=== PATIENT | female | born 1990 | race Caucasian/White ===

== ENCOUNTER 2020-05-01 10:17 | Observation (INO) | payer OTHER, SELFPAY ==
[2020-05-01] VITALS (8 sets, daily range): BP systolic 112–130; BP diastolic 68–87; PULSE 94–116; RESP 16; TEMP 36.9–37.6; BMI 34.4
--- NOTE | 2020-05-01 11:00 | OBADM ---
This patient, Gurmeet Nagel, admitted to the OB room [address] Martin's office due to premature ROM. Patient/family oriented to hospital policies and general routines including ID bracelet, bed and alarms, visiting hours, pain management, procedures, bathroom and other care routines, personal items, smoking policy, room service/diet, and visiting hours. Patient/Family are encouraged to report perceived risks to care and to ask questions if they do not understand what they are told or what they should do.
[2020-05-01] MEDS: AMPICILLIN 2 GM/NS 100 ML 2 GM/100 ML BAG IVPB (11:21)
[2020-05-01] MEDS: BETAMETHASONE SOD PHOS/ACETATE 30 MG/5 ML VIAL 12 MG IM (11:36)
[2020-05-01 11:42] LABS: Basophils Percent Auto 0.3 % (0.2-1.2); Eosinophils Percent Auto 0.3 % (0-4.4); Hematocrit 35.7 % (37.0-47.0); Hemoglobin 12.2 g/dL (12.0-15.0); Immature Granulocyte Absolute 0.03 K/mm3 (0.00-0.031); Immature Granulocyte Percent A 0.3 % (0-0.5); Lymphocytes Absolute Auto 1.75 K/mm3 (0.9-3.2); Lymphocytes Percent Auto 17.6 % (18.3-44.2); Mean Corpuscular HGB Conc 34.2 g/dl (32-36); Mean Corpuscular Hemoglobin 29.5 pg (26-34); Mean Corpuscular Volume 86.4 fl (80-100); Mean Platelet Volume 10.6 fl (7.4-10.4); Monocytes Absolute Auto 0.5 K/mm3 (0.1-0.6); Monocytes Percent Auto 4.9 % (2.6-8.5); Neutrophils Absolute Auto 7.6 K/mm3 (1.3-6.7); Neutrophils Percent Auto 76.6 % (45.5-73.1); Platelet Count Result 306 k/mm3 (150-375); Red Blood Count 4.13 M/mm3 (4.2-5.4); Red Cell Distribution Width 12.4 % (11.5-14.5)
--- NOTE | 2020-05-01 12:01 | PM.IMHP ---
H&P: HPI History of Present Illness Chief complaint: Spontaneous Rupture of membranes Narrative: Gurmeet Nagel is a 29 year old at 24w3d who presented for OB visist in the office today. She had and anatomy US performed today which showed no amniotic fluid. Pt reports she did have an episode of leakage of fluid last week that she believed was urine. She states she has had minimal LOF since. She endorses good FM and denies any regular contractions. She did report a small amount of spotting today after voiding. She denies any fevers, chills, nausea, vomiting. Her has been uncomplicated to dates. Review of Systems Cardiovascular: Cardiovascular: Denies chest pain, Denies leg edema, Denies palpitations, Denies dyspnea and Denies dyspnea on exertion Respiratory: Respiratory: Denies cough, Denies dyspnea and Denies dyspnea on exertion Gastrointestinal: Gastrointestinal: Denies abdominal pain, Denies constipation, Denies diarrhea, Denies nausea and Denies vomiting Genitourinary: Genitourinary: Denies hematuria, Denies urinary frequency, Denies dysuria, Denies pelvic pain, Denies urinary incontinence and Denies vaginal discharge Neurologic: Reports system reviewed and no additional complaints, except as documented Psychiatric: Psychiatric: Reports no additional psychiatric complaints Endocrine: Endocrine: Denies palpitations Meds Home Medications and Allergies Home Medications Medication Instructions Recorded Confirmed Type PNV cmb#95-ferrous fumarate-FA 1 tablet PO DAILY 05/01/20 05/01/20 History [] aspirin [Aspirin Low Dose] 81 mg PO DAILY 05/01/20 05/01/20 History Allergies Allergy/AdvReac Type Severity Reaction Status Date / Time azithromycin AdvReac Nausea and Verified 05/01/20 11:04 Vomiting Vital Signs Vital Signs - 24 hr 05/01/20 10:46 05/01/20 11:10 05/01/20 11:15 Pulse Rate 116 H 99 104 H Blood Pressure 128/87 116/78 118/74 05/01/20 11:30 05/01/20 11:45 05/01/20 12:00 Pulse Rate 114 H 94 95 Blood Pressure 112/75 118/68 120/75 Exam Const: General: no acute distress Eyes: EOM: EOMs intact bilaterally Neck: Neck: supple Thyroid: thyroid normal Chest: Breast/axilla inspection: normal inspection of the breasts Breast/axilla palpation: normal palpation of the breasts, normal palpation of the axillae and no axillary lymphadenopathy Resp: Effort & Inspection: normal respiratory effort Auscultation: clear to auscultation bilaterally Cardio: Rate: regular rate Rhythm: regular rhythm GI: Inspection: non-distended GI Palp: Yes Soft to palpation, No Tenderness to palpation present (GI) and No Guarding due to palpation present (GI) Auscultation: normal bowel sounds Other: Gravid, non-tender, fundal height greater than dates due to uterine fibroid : General: No bladder normal to palpation External Female Exam: normal external appearance Speculum Exam - Vagina: normal vaginal discharge, No vaginal bleeding and other (pooling fluid within the vaginal canal) Speculum Exam - Cervix: normal appearance of the cervix and Cervical os closed Bimanual exam- vagina & uterus: No bladder normal to palpation and No Cervical tenderness present OB/external & speculum: No vaginal bleeding Amniotic Fluid: clear and ferning present Skin: General skin exam: normal color and no rashes or lesions noted Neuro: Cognition (Neuro): normal cognition Speech: normal speech Extrem: General: normal to inspection and no edema Psych: Mental Status: mental status grossly normal Affect: normal affect H&P: Results Labs Labs: Short CBC 05/01/20 Range/Units 11:20 WBC 10.0 (4.5-10.0) K/mm3 Hgb 12.2 (12.0-15.0) g/dL Hct 35.7 L (37.0-47.0) % Plt Count 306 (150-375) k/mm3 Assessment and Plan Assessment and plan (1) Supervision of high risk , unspecified, unspecified trimester: Code(s): O09.90 - Supervision of high risk , unspecified,
[2020-05-01] MEDS: AZITHROMYCIN 250 MG TABLET 1000 MG PO (12:40)
[2020-05-01 16:28] LABS: Add Urine Microscopic? YES; Appearance Urine Clear (Clear); Bacteria Urine Trace /hpf; Bilirubin Urine Negative (Negative); Blood Urine 1+ (Negative); Color Urine Straw (Yellow); Glucose Urine UA Negative (Negative); Ketones Urine 1+ mg/dL (Negative); Leukocyte Esterase Ur Negative LEU/UL (Negative); Nitrate Urine Negative (Negative); Protein Urine Negative (Negative); RBC Urine 0-2 /hpf (0-2); Specific Grav Ur 1.008 (1.001-1.035); Squamous Epithelial Cell Urine Rare /hpf (Few); Urobilinogen Urine Negative mg/dL (<2.0); WBC Urine 0-3 /hpf
== END 2020-05-01 13:31 | disposition short-term general hospital (02) ==
LOC: ANHOBPP 11:06 → ANHLDR 13:32
PROVIDERS: Admitting Provider Student in an Organized Health Care Education/Training Program; PCP Physician Assistant Medical; Visit Provider Student in an Organized Health Care Education/Training Program
DX: O42.912 Preterm premature rupture of membranes, unspecified as to length of time between rupture and onset of labor, second trimester (principal); O09.92 Supervision of high risk pregnancy, unspecified, second trimester; O10.912 Unspecified pre-existing hypertension complicating pregnancy, second trimester; O34.10 Maternal care for benign tumor of corpus uteri, unspecified trimester; D25.9 Leiomyoma of uterus, unspecified; Z3A.24 24 weeks gestation of pregnancy
CPT/HCPCS: 36415; 81001; 85025; 96365; 96372; A9270; G0378; G0379; J0290; J0702

== ENCOUNTER 2024-03-03 08:53 | Emergency (ER) | payer OTHER, SELFPAY ==
[2024-03-03 09:05] VITALS: BP 111/62; PULSE 85; RESP 19; TEMP 36.3; O2SAT 100
[2024-03-03 09:21] LABS: Basophils Absolute Auto 0.1 K/mm3 (0.0-0.1); Basophils Percent Auto 0.5 % (0.2-1.2); Eosinophils Percent Auto 0.4 % (0-4.4); Hematocrit 40.4 % (37.0-47.0); Hemoglobin 13.8 g/dL (12.0-15.0); Immature Granulocyte Absolute 0.04 K/mm3 (0.00-0.031); Immature Granulocyte Percent A 0.4 % (0-0.5); Lymphocytes Absolute Auto 1.49 K/mm3 (0.9-3.2); Lymphocytes Percent Auto 14.6 % (18.3-44.2); Mean Corpuscular HGB Conc 34.2 g/dl (32-36); Mean Corpuscular Volume 87.8 fl (80-100); Mean Platelet Volume 10.5 fl (7.4-10.4); Monocytes Absolute Auto 0.4 K/mm3 (0.1-0.6); Monocytes Percent Auto 4.3 % (2.6-8.5); Neutrophils Absolute Auto 8.2 K/mm3 (1.3-6.7); Neutrophils Percent Auto 79.8 % (45.5-73.1); Platelet Count Result 301 k/mm3 (150-375); Red Cell Distribution Width 12.7 % (11.5-14.5); White Blood Count 10.2 K/mm3 (4.5-10.0)
[2024-03-03 09:31] LABS: Alanine Aminotransferase 31 U/L (6-35); Albumin Level 4.6 g/dL (3.5-5.1); Alkaline Phosphatase 78 U/L (38-126); Anion Gap 8 mmol/L (4-12); Aspartate Amino Transferase 29 U/L (14-36); Bilirubin,Total 0.6 mg/dL (0.2-1.3); Blood Urea Nitrogen 14 mg/dL (7-17); Calcium 9.5 mg/dL (8.4-10.2); Carbon Dioxide 24 mmol/L (22-30); Chloride 109 mmol/L (98-107); Estimated CRCL calculation 129 ml/min; Estimated Glomerular Filt Rate > 60; Glucose 114 mg/dL (65-110); Lipase 54 U/L (23-300); Potassium 3.9 mmol/L (3.4-5.0); Sodium 141 mmol/L (137-145)
[2024-03-03 09:49] VITALS: BP 123/78; PULSE 72; RESP 18; O2SAT 100
[2024-03-03 10:00] LABS: Appearance Urine Clear (Clear); Bacteria Urine None Seen /hpf; Bilirubin Urine Negative (Negative); Blood Urine 3+ (Negative); Color Urine Yellow (Yellow); Glucose Urine UA Negative (Negative); Ketones Urine 1+ mg/dL (Negative); Leukocyte Esterase Ur Trace LEU/UL (Negative); Nitrate Urine Negative (Negative); Non Pathogenic Casts 0-2; Protein Urine 1+ mg/dL (Negative); RBC Urine >100 /hpf (0-2); Specific Grav Ur 1.023 (1.001-1.035); Squamous Epithelial Cell Urine None Seen /hpf (Few); WBC Urine 0-5 /hpf (0-3); pH Urine >=9.0 (5.0-9.0)
[2024-03-03 10:10] LABS: Add Urine Microscopic? YES
[2024-03-03] MEDS: SODIUM CHLORIDE 0.9% IV 1,000 ML 999 ML IV CONT (10:11)
[2024-03-03] MEDS: ONDANSETRON INJ 4 MG/2 ML VIAL IV PUSH (10:11)
--- NOTE | 2024-03-03 10:48 | ED.GENADULT ---
HPI - General Adult General Chief complaint: Nausea/Vomiting/Diarrhea Stated complaint: Vomiting Time Seen by Provider: 03/03/24 09:57 History of Present Illness HPI narrative: 33-year-old female with history of migraines presenting to the emergency department for evaluation of headache and nausea vomiting and diarrhea. Patient states that her daughter did have a episode of gastroenteritis associated with nausea vomiting diarrhea and the daughter improved. Patient reports her symptoms started last night with nausea vomiting and this morning she woke up feeling dizzy and lightheaded with ambulation and had onset of a migraine. Patient did have online doctor examination was told to present to an urgent care IV fluids. No urgent cares were available to perform fluids so patient presented to the emergency department. Patient states that her migraine started as that normally does is currently located in the normal areas. Nothing atypical about this current migraine. Patient denies any associated abdominal pain other than some muscle tightness secondary to the episodes of vomiting. Related Data Home Medications Medication Instructions Recorded Confirmed aspirin 81 mg tablet,delayed 81 mg PO DAILY 05/01/20 05/01/20 release (Caleb Low Dose Aspirin) vit no.95-ferrous 1 tablet PO DAILY 05/01/20 05/01/20 fumarate 28 mg-folic acid 800 mcg tablet () Allergies Allergy/AdvReac Type Severity Reaction Status Date / Time azithromycin AdvReac Nausea and Verified 03/03/24 09:08 Vomiting Review of Systems Review of Systems: All systems reviewed & are unremarkable except as noted in HPI and below Exam Narrative: APPEARANCE: Uncomfortable appearing secondary to light sensitivity HEAD: normocephalic, atraumatic. EYES: PERRLA/EOMI, conjunctivae clear. NOSE: Normal no drainage EARS:TMS clear with good light reflex. THROAT: Pharynx clear, no exudate. NECK: Supple. No adenopathy, no masses. RESPIRATORY: Airway patent, respirations nonlabored. Clear to auscultation bilaterally, no rales, rhonchi, wheezing. CARDIOVASCULAR: Regular rate and rhythm without murmurs rubs or gallops. ABDOMINAL: Soft, nontender, nondistended, normal bowel sounds MUSCULOSKELETAL: Moves all extremities. Strength/ROM intact, No edema, No calf tenderness. NEURO: Alert. Cranial nerves II through XII intact. Grossly intact SKIN: Warm, dry. Normal Color Course Vital Signs Vital signs: Vital Signs Temperature 97.4 F L 03/03/24 09:05 Pulse Rate 85 03/03/24 09:05 Respiratory Rate 19 03/03/24 09:05 Blood Pressure 111/62 03/03/24 09:05 Pulse Oximetry 100 03/03/24 09:05 Oxygen Delivery Room Air 03/03/24 09:05 Temperature 97.4 F L 03/03/24 09:05 Pulse Rate 71 03/03/24 12:25 Respiratory Rate 20 03/03/24 12:25 Blood Pressure 118/65 03/03/24 12:25 Pulse Oximetry 99 03/03/24 12:25 Oxygen Delivery Room Air 03/03/24 09:05 Medical Decision Making MDM Narrative Medical decision making narrative: 33-year-old female presenting ED for evaluation of persistent nausea vomiting and subsequent headache. Patient was treated with IV Benadryl, IV Compazine, IV Toradol IV Zofran and IV fluids. On re-evaluation patient states that she feels significantly improved and is requesting discharge to home. Patient was afebrile but does have a leukocytosis 10.2 and a stable hemoglobin of 13.8. No significant lactic light abnormalities on her CMP and lipase is negative. Patient did have blood in her urine but patient is currently menstruating. Patient will be started on clear liquid diet provided Zofran for home. Patient was updated the results of her workup patient was comfortable with plan for discharge and close follow-up with her primary care physician. Differential Diagnosis Differential Diagnosis: Migraine, headache, nausea vomiting diarrhea, gastroenteritis, pancreatitis Vital Signs Vital Signs: Vital S
[2024-03-03] MEDS: KETOROLAC 15 MG/ML VIAL (*BKC) IV PUSH (10:56)
[2024-03-03] MEDS: diphenhydrAMINE HCl INJ 50 MG/ML VIAL 25 MG IV PUSH (10:57)
[2024-03-03] MEDS: PROCHLORPERAZINE EDISYLATE 10 MG/2 ML VIAL IV PUSH (10:57)
[2024-03-03 11:07] VITALS: BP 120/86; PULSE 78; RESP 19; O2SAT 100
[2024-03-03 12:25] VITALS: BP 118/65; PULSE 71; RESP 20; O2SAT 99
== END 2024-03-03 12:26 | disposition home or self-care (01) ==
PROVIDERS: Student in an Organized Health Care Education/Training Program; Emergency Provider Emergency Medicine; PCP Physician Assistant Medical
DX: G43.909 Migraine, unspecified, not intractable, without status migrainosus (principal); R11.2 Nausea with vomiting, unspecified
CPT/HCPCS: 36415; 80053; 81001; 81025; 83690; 85025; 96361; 96374; 96375; 99284; J0780; J1200; J1885; J2405; J7030